=== PATIENT | female | born 1970 | race Two or more races ===

== ENCOUNTER → 2018-08-08 | Day surgery (SDC) | payer OTHER ==
[~2018-08-08] MED LIST: CLONAZEPAM1 MG PO; LAMICTAL100 M1 PO; MOTRIN IB200 MG PO
== END | disposition home or self-care (01) ==
LOC: ADM 08-01 10:15 → CIR.AMB 07:15
DX: M77.11 Lateral epicondylitis, right elbow (principal)

== ENCOUNTER 2019-04-24 05:50 | Day surgery (SDC) | payer OTHER ==
[~2019-04-24 05:50] MED LIST changes: +VIIBRYD1 EAC1
== END 2019-04-24 11:20 | disposition home or self-care (01) ==
LOC: CIR.AMB 05:50 → ADM 09:45 → CIR.AMB 11:20
DX: M75.41 Impingement syndrome of right shoulder (principal); M75.01 Adhesive capsulitis of right shoulder